=== PATIENT | female | born 1995 | race Caucasian/White ===

== ENCOUNTER 2023-04-05 13:28 | Outpatient (CLI) | payer OTHER | END 2023-04-05 13:29 | disposition home or self-care (01) | LOC: CSHMAMMO 13:28 | PROVIDERS: ATTEND Advanced Practice Midwife | DX: N64.4 Mastodynia (principal) | CPT/HCPCS: 77066; G0279 ==

== ENCOUNTER 2024-04-18 22:12 | Day surgery (SDC) | payer OTHER ==
[2024-04-18 22:50] VITALS: BMI 25.0
[2024-04-18 23:24] LABS: Fetal Membranes Rupture No Membranes Rupture (No Rupture)
[2024-04-18] MEDS ORDERED: hydrALAZINE 20 MG/ML VIAL SLOW IVP PRN (23:34)
[2024-04-18 23:43] LABS: Bilirubin Neg (Negative); Blood, Urine Negative (Negative); Clarity Clear (Clear); Glucose, Urine (Dipstick) Normal (Negative); Ketone, Urine Negative (Negative); Leukocyte Negative (Negative); Nitrite Negative (Negative); Protein, Urine (Dipstick) 15 mg/dl (Neg-Trace); Urobilinogen Normal mg/dL (Less than 2); pH, Urine 6.5 (5.0-9.0)
[2024-04-18] MEDS ORDERED: Acetaminophen 500 MG TAB PO PRN (23:59)
== END 2024-04-19 01:02 | disposition home or self-care (01) ==
LOC: CSHLD/OP 22:12
PROVIDERS: ATTEND Obstetrics & Gynecology
DX: O47.03 False labor before 37 completed weeks of gestation, third trimester (principal); Z03.71 Encounter for suspected problem with amniotic cavity and membrane ruled out; O98.813 Other maternal infectious and parasitic diseases complicating pregnancy, third trimester; B37.31 Acute candidiasis of vulva and vagina; O99.013 Anemia complicating pregnancy, third trimester; D64.9 Anemia, unspecified; O99.343 Other mental disorders complicating pregnancy, third trimester; F41.9 Anxiety disorder, unspecified; F32.A Depression, unspecified; Z88.2 Allergy status to sulfonamides; Z79.899 Other long term (current) drug therapy; Z3A.34 34 weeks gestation of pregnancy
CPT/HCPCS: 81003; 84112; 87480; 87510; 87660; 99285